=== PATIENT | male | born 1945 | race Caucasian/White ===

== ENCOUNTER 2017-03-06 05:16 | Day surgery (SDC) | payer OTHER, BC ==
[~2017-03-06] VITALS: Ht 188 cm; Wt 90.3 kg
--- NOTE | ~2017-03-06 | O ---
[facility] [place] [address] OPERATIVE REPORT Name: DAVID BUNCH Room #: DEP [facility]..#: [id number] Admission: 03/06/17 Attend Phys: Raulito Oliva MD Discharge: 03/06/17 Date of : 49 Report #: [id number] THIS REPORT FOR: //name// CC: Chris Oliva DATE OF SERVICE: 03/06/2017 PATIENT OF: Dr. Raulito Oliva and Dr. Chris Tom. PREOPERATIVE DIAGNOSIS: Right inguinal hernia. POSTOPERATIVE DIAGNOSIS: Right inguinal hernia. PROCEDURE: Right inguinal hernia repair with Prolene hernia system mesh. SURGEON: Raulito Oliva MD ANESTHESIA: Local IV sedation. DESCRIPTION OF PROCEDURE: The patient was brought to the operating room and placed on operative table in the supine position. Sequential compression devices were in place for DVT prophylaxis. The patient and his orthopedic surgeon insisted on preoperative antibiotics and the patient was given a preoperative dose of Ancef. The patient underwent IV sedation and right inguinal area was prepped and draped in a sterile fashion. Skin and subcutaneous tissue were then infiltrated with 0.5% Marcaine and 1% Xylocaine in a 1:1 mixture. A right inguinal skin incision was then performed using a #10 scalpel blade. Hemostasis obtained using electrocautery. Dissection was carried down through subcutaneous tissue and further hemostasis was obtained using clamps and 2-0 chromic ties and the electrocautery. External oblique fascia was then identified and incised with a knife and opened with the Metzenbaum scissors. The ilioinguinal nerve was identified and injected with the local mixture, dissected free and preserved. The cord was then elevated and held into place with a Dante drain. There was no evidence of any indirect inguinal hernia sac. There was a moderate to small sized direct inguinal hernia defect. This hernia sac was dissected free and incised above the level of the floor and reduced back through the floor into the preperitoneal space. The extended Prolene hernia system mesh was then inserted through the floor and the underlay patch was then deployed into the preperitoneal space. The connector was left in the floor and the floor was then tightened around the connector using running 2-0 Prolene two layer shouldice repair. The overlay patch was then deployed in the inguinal canal and secured at the pubic tubercle with the same running 2-0 Prolene suture. The mesh was then secured superiorly at the connector using simple interrupted 2-0 Vicryl sutures. The mesh was split and [facility] [address] [place] [address] OPERATIVE REPORT Name: DAVID BUNCH Room #: DEP [facility].#: [id number] Admission: 03/06/17 Attend Phys: Raulito Oliva MD Discharge: 03/06/17 Date of : 49 Report #: [id number] wrapped around the cord, secured to the inguinal ligament with simple interrupted 2-0 Vicryl suture. The cord and ilioinguinal nerve were then returned to the canal intact. The external oblique fascia was then closed using a running 2-0 Vicryl suture. Ryan's fascia was then reapproximated using 3 simple interrupted 2-0 chromic sutures and the skin then closed with a running 4-0 subcuticular Vicryl stitch. The wound was then dressed with Mastisol, 1/2-inch Steri-Strips cut in half, Telfa, 4 x 4 gauze, sponge and tape. The patient was then taken to the recovery room awake, alert and in good condition. Estimated blood loss was approximately 10 mL and the patient tolerated the procedure well. All sponge, lap and instrument counts correct times 2. <ELECTRONICALLY SIGNED> By: Raulito Oliva MD 03/14/17 1502 [id number] Raulito Oliva MD /nt
[~2017-03-06 05:16] MED LIST: CENTRUM SILVER1 EAC2 PO; FLONASE 0.05%50 MCG NASAL; PROSTATE THERA1 EACH PO; ROBITUSSIN COU1 EAC2 PO; VITAMIN C500 M2 PO; XANAX 0.25 MG0.25 MG PO; ZYRTEC10 M5 PO
[2017-03-06 07:00] VITALS: BP 131/79
[2017-03-06] MEDS ORDERED: NORCO 5-325 TA1 EACH PO (09:21)
[2017-03-06 09:32] VITALS: BP 131/79
== END 2017-03-06 09:52 | disposition home or self-care (01) ==
LOC: OR 05:16 → TBA 05:16 → OR 09:52
DX: K40.90 Unilateral inguinal hernia, without obstruction or gangrene, not specified as recurrent (principal); N40.0 Benign prostatic hyperplasia without lower urinary tract symptoms; G47.33 Obstructive sleep apnea (adult) (pediatric); K21.9 Gastro-esophageal reflux disease without esophagitis; F17.210 Nicotine dependence, cigarettes, uncomplicated; Z98.890 Other specified postprocedural states; Z85.828 Personal history of other malignant neoplasm of skin; Z96.643 Presence of artificial hip joint, bilateral; Z88.8 Allergy status to other drugs, medicaments and biological substances; Z79.891 Long term (current) use of opiate analgesic
CPT/HCPCS: 50010; 50101; 50386; 50417; 54111; 56524; 56525; 56526; 56528; 62110; 62850; 70005